=== PATIENT | female | born 1970 | race African-American/Black ===

== ENCOUNTER 2017-03-17 22:00 | Emergency (ER) | payer OTHER ==
[~2017-03-17] VITALS: Ht 170.2 cm; Wt 71.7 kg
[~2017-03-17 22:00] MED LIST: HYDROCHLOROTHIA25 M1 PO; TRAMADOL 50 MG50 MG PO
[2017-03-17 22:19] VITALS: BP 126/81
[2017-03-17] MEDS ORDERED: NAPROSYN500 MG PO (22:39)
[2017-03-17] MEDS ORDERED: NORFLEX100 MG PO (22:39)
== END 2017-03-17 22:41 | disposition home or self-care (01) ==
LOC: ER 22:00
DX: S39.012A Strain of muscle, fascia and tendon of lower back, initial encounter (principal); I10 Essential (primary) hypertension; J45.909 Unspecified asthma, uncomplicated; Z88.6 Allergy status to analgesic agent; Z87.891 Personal history of nicotine dependence; V89.2XXA Person injured in unspecified motor-vehicle accident, traffic, initial encounter; Y93.89 Activity, other specified; Y92.89 Other specified places as the place of occurrence of the external cause; Y99.8 Other external cause status